=== PATIENT | female | born 1955 | race Hispanic/Latino ===

== ENCOUNTER 2021-05-14 09:42 | Emergency (ER) | payer MEDICARE, MEDICAID ==
[2021-05-14 10:24] LABS: #Basophils 0.1 10x3/uL (0.0-0.2); #Eosinphils 0.2 10x3/uL (0.0-0.5); #Monocytes 0.5 10x3/uL (0.0-1.1); #Neutrophils 4.5 10x3/uL (1.5-8.4); %Basophils 0.8 % (0.0-2.0); %Eosinophils 2.7 % (0.0-6.0); %Lymphocytes 27.4 % (18.0-47.0); %Monocytes 6.5 % (0.0-10.0); %Neutrophils 61.6 % (40.0-75.0); Hemoglobin 11.8 g/dL (12.0-15.5); Mean Corpuscular HGB CONC 32.4 g/dL (32.0-36.0); Mean Corpuscular Hemoglobin 25.5 pg (27.0-33.0); Mean Corpuscular Volume 78.8 fl (81.6-98.3); Mean Platelet Volume 11.1 fl (7.4-10.4); Platelet Count 263 10x3/uL (150-450); RBC Distribution Width 14.6 % (11.5-14.5); Red Blood Cell (RBC) Count 4.62 10x6/uL (3.90-5.03); White Blood Cell (WBC) Count 7.4 10x3/uL (3.5-10.5)
[2021-05-14] MEDS ORDERED: Bupivacaine 0.25% HCL 30 ML VIAL ONE (10:31)
[2021-05-14] MEDS ORDERED: Metoclopramide HCl 10 MG/2 ML VIAL ONE (10:32)
[2021-05-14] MEDS ORDERED: diphenhydrAMINE 50 MG/ML VIAL ONE (10:32)
[2021-05-14] MEDS ORDERED: Ketorolac Tromethamine 30 MG/ML VIAL ONE (10:32)
[2021-05-14 10:38] LABS: ALT (SGPT) 8 U/L (8-55); AST (SGOT) 13 U/L (5-34); Albumin 2.8 g/dL (3.4-4.8); Alkaline Phosphatase 165 U/L (40-110); Anion Gap 12 mmol/L (10-20); BUN (Urea Nitrogen) 18 mg/dL (9.8-20.1); Bilirubin, Total 0.3 mg/dL (0.2-1.2); Calc. Creatinine Clearance 0 mL/min (70-130); Calcium 9.2 mg/dL (7.8-10.44); Carbon Dioxide 27 mmol/L (23-31); Chloride 100 mmol/L (98-107); Globulin 3.3 g/dL (2.4-3.5); Glucose 287 mg/dL (80-115); Protein, Total 6.1 g/dL (5.8-8.1); Sodium 136 mmol/L (136-145)
== END 2021-05-14 13:00 | disposition home or self-care (01) ==
LOC: CSHERS 09:42
DX: E11.65 Type 2 diabetes mellitus with hyperglycemia (principal); R51.9 Headache, unspecified; I10 Essential (primary) hypertension; E78.00 Pure hypercholesterolemia, unspecified
CPT/HCPCS: 36415; 71045; 80053; 84484; 85025; 93005; 96372; 96374; 96375; J1200; J1885; J2765; S0020

== ENCOUNTER 2022-12-07 06:45 | Inpatient (IN) | payer OTHER, MEDICAID ==
[2022-12-07] MEDS ORDERED: Aspirin Chewable 81 MG TAB ONE (08:07)
[2022-12-07 08:20] LABS: #Monocytes 0.9 10x3/uL (0.0-1.1); #Neutrophils 15.9 10x3/uL (1.5-8.4); %Basophils 0.2 % (0.0-2.0); %Eosinophils 0.1 % (0.0-6.0); %Lymphocytes 4.9 % (18.0-47.0); %Monocytes 4.8 % (0.0-10.0); %Neutrophils 88.8 % (40.0-75.0); Hematocrit 20.9 % (34.9-44.5); Hemoglobin 6.5 g/dL (12.0-15.5); Mean Corpuscular HGB CONC 31.1 g/dL (32.0-36.0); Mean Corpuscular Hemoglobin 27.1 pg (27.0-33.0); Mean Corpuscular Volume 87.1 fl (81.6-98.3); Mean Platelet Volume 11.5 fl (7.4-10.4); Platelet Count 196 10x3/uL (150-450); RBC Distribution Width 15.5 % (11.5-14.5); White Blood Cell (WBC) Count 17.9 10x3/uL (3.5-10.5)
[2022-12-07 08:30] LABS: Troponin I 0.012 ng/mL (< 0.028)
[2022-12-07 08:37] LABS: ALT (SGPT) 7 U/L (8-55); AST (SGOT) 13 U/L (5-34); Albumin 3.1 g/dL (3.4-4.8); Alkaline Phosphatase 127 U/L (40-110); Anion Gap 19 mmol/L (10-20); BUN (Urea Nitrogen) 44 mg/dL (9.8-20.1); Bilirubin, Total 0.9 mg/dL (0.2-1.2); Calc. Creatinine Clearance 0 mL/min (70-130); Calcium 8.7 mg/dL (7.8-10.44); Carbon Dioxide 19 mmol/L (23-31); Chloride 104 mmol/L (98-107); Estimated GFR 13; Globulin 3.5 g/dL (2.4-3.5); Glucose 199 mg/dL (80-115); Magnesium 2.2 mg/dL (1.6-2.6); Potassium 5.7 mmol/L (3.5-5.1); Protein, Total 6.6 g/dL (5.8-8.1); Sodium 136 mmol/L (136-145)
[2022-12-07] MEDS ORDERED: Azithromycin 500 MG VIAL ONE (08:38)
[2022-12-07] MEDS ORDERED: Ondansetron ODT 4 MG TAB PO PRN (09:14)
[2022-12-07] MEDS ORDERED: Ampicillin/Sulbactam 3 GM in Sodium Chloride 0.9% 100 ML IVPB SCH (09:15)
[2022-12-07] MEDS ORDERED: Dextrose 50% Abboject 50 ML SYRINGE SLOW IVP PRN (09:20)
[2022-12-07] MEDS ORDERED: Dextrose 5% in Water 1,000 ML IV PRN (09:20)
[2022-12-07] MEDS ORDERED: Glucagon 1 MG/ML KIT IM PRN (09:20)
[2022-12-07 09:46] LABS: SARS-CoV-2 NAA Rapid Test Not Detected (NotDetected)
[2022-12-07] MEDS ORDERED: Vancomycin 1.5 GRAM/300 ML BAG 1.5 GM in Premix Bag 1 BAG IVPB SCH (14:00)
[2022-12-07] MEDS ORDERED: Acetaminophen 325 MG TAB ONE (15:09)
[2022-12-07] MEDS: Acetaminophen 325 MG TAB PO PRN (15:21)
[2022-12-07] MEDS ORDERED: Vancomycin Dose by Levels Sliding Scale (Wt > 99) FS SCH (22:30)
[2022-12-08] MEDS: Heparin 5,000 UNITS/ML VIAL SC SCH ×3 (00:28→09:08)
[2022-12-08] MEDS: Atorvastatin Calcium 40 MG TAB PO SCH ×2 (00:30→21:03)
[2022-12-08] MEDS: Gabapentin 400 MG CAP PO SCH ×4 (00:30→21:03)
[2022-12-08] MEDS: Ampicillin/Sulbactam 1.5 GM in Sodium Chloride 0.9% 100 ML IVPB SCH ×3 (00:41→23:28)
[2022-12-08 04:53] LABS: ALT (SGPT) 8 U/L (8-55); AST (SGOT) 17 U/L (5-34); Alkaline Phosphatase 127 U/L (40-110); Anion Gap 18 mmol/L (10-20); BUN (Urea Nitrogen) 57 mg/dL (9.8-20.1); Bilirubin, Total 0.9 mg/dL (0.2-1.2); Calc. Creatinine Clearance 21 mL/min (70-130); Calcium 8.6 mg/dL (7.8-10.44); Carbon Dioxide 20 mmol/L (23-31); Chloride 101 mmol/L (98-107); Estimated GFR 11; Globulin 3.5 g/dL (2.4-3.5); Glucose 227 mg/dL (80-115); Potassium 5.3 mmol/L (3.5-5.1); Protein, Total 6.5 g/dL (5.8-8.1); Sodium 134 mmol/L (136-145)
[2022-12-08 05:08] LABS: #Eosinphils 0.1 10x3/uL (0.0-0.5); #Monocytes 0.8 10x3/uL (0.0-1.1); #Neutrophils 14.1 10x3/uL (1.5-8.4); %Basophils 0.2 % (0.0-2.0); %Eosinophils 0.4 % (0.0-6.0); %Lymphocytes 4.6 % (18.0-47.0); %Monocytes 4.7 % (0.0-10.0); %Neutrophils 89.2 % (40.0-75.0); Hematocrit 21.1 % (34.9-44.5); Hemoglobin 6.6 g/dL (12.0-15.5); Mean Corpuscular HGB CONC 31.3 g/dL (32.0-36.0); Mean Corpuscular Hemoglobin 26.7 pg (27.0-33.0); Mean Corpuscular Volume 85.4 fl (81.6-98.3); Mean Platelet Volume 11.5 fl (7.4-10.4); Platelet Count 197 10x3/uL (150-450); RBC Distribution Width 17.3 % (11.5-14.5); Red Blood Cell (RBC) Count 2.47 10x6/uL (3.90-5.03); White Blood Cell (WBC) Count 15.9 10x3/uL (3.5-10.5)
[2022-12-08 07:04] LABS: CK (CPK) 29 U/L (29-168); Iron 14 ug/dL (50-170); Iron Binding Capacity, Total 165 mcg/dL (265-497)
[2022-12-08] MEDS: Sodium Bicarbonate Tab 325 MG TAB PO SCH ×3 (08:56→21:03)
[2022-12-08] MEDS: Ezetimibe 10 MG TAB PO SCH (08:57)
[2022-12-08] MEDS: Azithromycin 500 MG in Sodium Chloride 0.9% 250 ML 250 ML IVPB SCH (08:57)
[2022-12-08 09:42] LABS: Bilirubin Neg (Negative); Blood, Urine 10 (Negative); Clarity Slightly Cloudy (Clear); Glucose, Urine (Dipstick) 250 mg/dL (Negative); Ketone, Urine Negative (Negative); Leukocyte 100 (Negative); Nitrite Negative (Negative); Protein, Urine (Dipstick) 100 mg/dl (Neg-Trace); Urobilinogen Normal mg/dL (Less than 2)
[2022-12-08 10:06] LABS: Creatinine, Urine 112.02 mg/dL (47-110)
[2022-12-08 10:11] LABS: RBC/HPF 0-3 HPF (0-3)
[2022-12-08 10:12] LABS: Bacteria/HPF 1+ HPF (None Seen)
[2022-12-08 10:16] LABS: Protein, Urine Random Quant 196 mg/dL (1-14)
[2022-12-08] MEDS: Aripiprazole 10 MG TAB PO SCH (10:20)
[2022-12-08] MEDS: Acetaminophen 325 MG TAB PO PRN (10:25)
[2022-12-08] MEDS ORDERED: Lidocaine 1% PF 5 ML VIAL ONE (12:09)
[2022-12-08] MEDS ORDERED: Sodium Bicarbonate 2.5 MEQ/5 ML VIAL ONE (12:09)
[2022-12-08] MEDS ORDERED: LOKELMA 10 GM PACKET PO SCH (14:00)
[2022-12-08 15:09] LABS: Sodium, Urine Less than 20 mmol/L (Not Available); Urea Nitrogen, Random Urine 310 mg/dl
[2022-12-08 15:48] LABS: Vancomycin, Random 16.7 ug/mL (See Comment)
[2022-12-08] MEDS ORDERED: Vancomycin HCl 750 MG in Sodium Chloride 0.9% 250 ML 250 ML IVPB SCH (20:00)
[2022-12-09 04:39] LABS: Albumin 3.2 g/dL (3.4-4.8); Anion Gap 18 mmol/L (10-20); BUN (Urea Nitrogen) 65 mg/dL (9.8-20.1); BUN/Creatinine Ratio 14.13; Calc. Creatinine Clearance 20 mL/min (70-130); Calcium 8.4 mg/dL (7.8-10.44); Carbon Dioxide 19 mmol/L (23-31); Chloride 99 mmol/L (98-107); Estimated GFR 10; Glucose 266 mg/dL (80-115); Phosphorus 6.4 mg/dL (2.3-4.7); Potassium 4.9 mmol/L (3.5-5.1); Sodium 131 mmol/L (136-145)
[2022-12-09 04:48] LABS: #Eosinphils 0.2 10x3/uL (0.0-0.5); #Monocytes 0.6 10x3/uL (0.0-1.1); #Neutrophils 11.9 10x3/uL (1.5-8.4); %Basophils 0.3 % (0.0-2.0); %Eosinophils 1.1 % (0.0-6.0); %Lymphocytes 6.6 % (18.0-47.0); %Monocytes 4.3 % (0.0-10.0); %Neutrophils 85.9 % (40.0-75.0); Hematocrit 23.7 % (34.9-44.5); Hemoglobin 7.5 g/dL (12.0-15.5); Mean Corpuscular HGB CONC 31.6 g/dL (32.0-36.0); Mean Corpuscular Hemoglobin 26.3 pg (27.0-33.0); Mean Corpuscular Volume 83.2 fl (81.6-98.3); Mean Platelet Volume 11.6 fl (7.4-10.4); Platelet Count 236 10x3/uL (150-450); RBC Distribution Width 16.4 % (11.5-14.5); Red Blood Cell (RBC) Count 2.85 10x6/uL (3.90-5.03); White Blood Cell (WBC) Count 13.9 10x3/uL (3.5-10.5)
[2022-12-09] MEDS: Insulin Regular 300 UNITS/3 ML VIAL SC PRN ×3 (06:40→17:22)
[2022-12-09] MEDS ORDERED: Sodium Bicarbonate Tab 325 MG TAB PO SCH (07:51)
[2022-12-09] MEDS ORDERED: Sodium Chloride 0.9% 1,000 ML IV SCH (09:00)
[2022-12-09] MEDS: Sodium Bicarbonate Tab 325 MG TAB PO SCH ×3 (10:12→21:46)
[2022-12-09] MEDS: Ezetimibe 10 MG TAB PO SCH (10:12)
[2022-12-09] MEDS: Aripiprazole 10 MG TAB PO SCH (10:12)
[2022-12-09] MEDS: Gabapentin 400 MG CAP PO SCH ×3 (10:12→21:45)
[2022-12-09] MEDS: Lantus 1000 UNITS/10 ML VIAL SC SCH (10:13)
[2022-12-09] MEDS: Albumin 25% 25 GM/100 ML BOT IVPB SCH ×3 (10:13→22:37)
[2022-12-09] MEDS: Azithromycin 500 MG in Sodium Chloride 0.9% 250 ML 250 ML IVPB SCH (10:33)
[2022-12-09] MEDS: Ampicillin/Sulbactam 1.5 GM in Sodium Chloride 0.9% 100 ML IVPB SCH ×2 (11:00→22:42)
[2022-12-09] MEDS: Sevelamer Carbonate 800 MG TAB PO SCH ×2 (12:14→17:21)
[2022-12-09] MEDS ORDERED: Iron, Sodium Ferric Gluconate 250 MG, Admixture Fee 1 EACH in Sodium Chloride 0.9% 250 ... IVPB SCH (13:45)
[2022-12-09] MEDS ORDERED: Epoetin (ESRD) 10,000 UNITS/ML VIAL SC SCH (14:00)
[2022-12-09] MEDS ORDERED: Nitroglycerin 2% Ointment 1 INCH/1 GM Packet TOP SCH (21:00)
[2022-12-09] MEDS: Atorvastatin Calcium 40 MG TAB PO SCH (21:46)
[2022-12-09 21:51] LABS: Vancomycin, Trough 20.6 ug/mL
[2022-12-10] MEDS ORDERED: Ipratropium/Albuterol 3 ML NEB NEB SCH (01:30)
[2022-12-10] MEDS ORDERED: Nitroglycerin 2% Ointment 1 INCH/1 GM Packet TOP SCH ×2 (02:30→03:15)
[2022-12-10 02:32] LABS: #Eosinphils 0.2 10x3/uL (0.0-0.5); #Monocytes 0.7 10x3/uL (0.0-1.1); #Neutrophils 8.2 10x3/uL (1.5-8.4); %Basophils 0.2 % (0.0-2.0); %Eosinophils 2.1 % (0.0-6.0); %Lymphocytes 9.6 % (18.0-47.0); %Monocytes 6.6 % (0.0-10.0); %Neutrophils 79.4 % (40.0-75.0); Hematocrit 21.8 % (34.9-44.5); Hemoglobin 7.1 g/dL (12.0-15.5); Mean Corpuscular HGB CONC 32.6 g/dL (32.0-36.0); Mean Corpuscular Hemoglobin 26.8 pg (27.0-33.0); Mean Corpuscular Volume 82.3 fl (81.6-98.3); Mean Platelet Volume 11.2 fl (7.4-10.4); Platelet Count 221 10x3/uL (150-450); RBC Distribution Width 16.5 % (11.5-14.5); Red Blood Cell (RBC) Count 2.65 10x6/uL (3.90-5.03); White Blood Cell (WBC) Count 10.4 10x3/uL (3.5-10.5)
[2022-12-10 02:48] LABS: Anion Gap 21 mmol/L (10-20); BUN (Urea Nitrogen) 70 mg/dL (9.8-20.1); Calc. Creatinine Clearance 21 mL/min (70-130); Calcium 7.8 mg/dL (7.8-10.44); Carbon Dioxide 20 mmol/L (23-31); Chloride 100 mmol/L (98-107); Estimated GFR 10; Glucose 214 mg/dL (80-115); Potassium 4.5 mmol/L (3.5-5.1); Sodium 136 mmol/L (136-145); Troponin I 0.032 ng/mL (< 0.028)
[2022-12-10] MEDS ORDERED: Furosemide 100 MG/10 ML VIAL SLOW IVP SCH (03:00)
[2022-12-10] MEDS: Insulin Regular 300 UNITS/3 ML VIAL SC PRN ×3 (06:34→17:20)
[2022-12-10] MEDS ORDERED: Vancomycin 1 GM in Premix Bag 1 BAG IVPB SCH (06:45)
[2022-12-10 07:36] LABS: #Eosinphils 0.2 10x3/uL (0.0-0.5); #Monocytes 0.8 10x3/uL (0.0-1.1); #Neutrophils 8.4 10x3/uL (1.5-8.4); %Basophils 0.2 % (0.0-2.0); %Monocytes 7.6 % (0.0-10.0); %Neutrophils 78.7 % (40.0-75.0); Anion Gap 23 mmol/L (10-20); BUN (Urea Nitrogen) 70 mg/dL (9.8-20.1); Calc. Creatinine Clearance 21 mL/min (70-130); Calcium 8.3 mg/dL (7.8-10.44); Carbon Dioxide 17 mmol/L (23-31); Chloride 101 mmol/L (98-107); Estimated GFR 11; Glucose 216 mg/dL (80-115); Hematocrit 21.7 % (34.9-44.5); Hemoglobin 7.1 g/dL (12.0-15.5); Mean Corpuscular HGB CONC 32.7 g/dL (32.0-36.0); Mean Corpuscular Hemoglobin 26.9 pg (27.0-33.0); Mean Corpuscular Volume 82.2 fl (81.6-98.3); Mean Platelet Volume 11.3 fl (7.4-10.4); Platelet Count 222 10x3/uL (150-450); Potassium 4.5 mmol/L (3.5-5.1); RBC Distribution Width 16.6 % (11.5-14.5); Red Blood Cell (RBC) Count 2.64 10x6/uL (3.90-5.03); Sodium 136 mmol/L (136-145); White Blood Cell (WBC) Count 10.6 10x3/uL (3.5-10.5)
[2022-12-10 07:42] LABS: Troponin I 0.028 ng/mL (< 0.028)
[2022-12-10] MEDS ORDERED: Cefepime 2 GM in Sodium Chloride 0.9% 100 ML IVPB SCH (09:00)
[2022-12-10] MEDS: Sodium Bicarbonate Tab 325 MG TAB PO SCH ×3 (09:44→22:37)
[2022-12-10] MEDS: Sevelamer Carbonate 800 MG TAB PO SCH ×3 (09:44→17:20)
[2022-12-10] MEDS: Ezetimibe 10 MG TAB PO SCH (09:44)
[2022-12-10] MEDS: Aripiprazole 10 MG TAB PO SCH (09:44)
[2022-12-10] MEDS: Lantus 1000 UNITS/10 ML VIAL SC SCH (09:45)
[2022-12-10] MEDS: Gabapentin 400 MG CAP PO SCH ×3 (09:45→22:37)
[2022-12-10] MEDS ORDERED: LevoFLOXacin 750 mg/D5W 750 MG in Premix Bag 1 BAG IVPB SCH (10:00)
[2022-12-10] MEDS: Acetaminophen 325 MG TAB PO PRN (10:09)
[2022-12-10 11:43] LABS: HBSAg Index 0.16 S/CO (0-0.99); Hep B Surf Ag Non-Reactive S/CO (NonReactive)
[2022-12-10] MEDS ORDERED: LevoFLOXacin 750 MG TAB PO SCH (12:00)
[2022-12-10] MEDS ORDERED: Doxycycline 100 MG CAP PO SCH (12:00)
[2022-12-10] MEDS: Ipratropium/Albuterol 3 ML NEB NEB PRN ×2 (13:15→20:19)
[2022-12-10 16:10] LABS: Hep B Core Total Ab Non-Reactive (NonReactive); Hep B Core Total Index 0.12 S/CO (0-0.79); Hep C IgG Ab Non-Reactive S/CO (NonReactive); Hep C Index 0.08 S/CO (0-0.79)
[2022-12-10 16:15] LABS: HBSAB Concentration 53.14 mIU/mL; Hep B Surf AB Reactive (NonReactive)
[2022-12-10] MEDS ORDERED: traZODone HCl 50 MG TAB PO PRN (22:17)
[2022-12-10] MEDS: Atorvastatin Calcium 40 MG TAB PO SCH (22:37)
[2022-12-10] MEDS: Doxycycline 100 MG CAP PO SCH (22:37)
[2022-12-11] MEDS: Ipratropium/Albuterol 3 ML NEB NEB PRN ×3 (01:16→19:40)
[2022-12-11] MEDS ORDERED: Ketorolac Tromethamine 30 MG/ML VIAL IVP SCH (02:00)
[2022-12-11 03:50] LABS: #Basophils 0.1 10x3/uL (0.0-0.2); #Eosinphils 0.1 10x3/uL (0.0-0.5); #Monocytes 0.9 10x3/uL (0.0-1.1); #Neutrophils 9.7 10x3/uL (1.5-8.4); %Basophils 0.4 % (0.0-2.0); %Eosinophils 0.8 % (0.0-6.0); %Lymphocytes 7.7 % (18.0-47.0); %Neutrophils 79.4 % (40.0-75.0); Hematocrit 22.7 % (34.9-44.5); Hemoglobin 7.3 g/dL (12.0-15.5); Mean Corpuscular HGB CONC 32.2 g/dL (32.0-36.0); Mean Corpuscular Hemoglobin 26.6 pg (27.0-33.0); Mean Corpuscular Volume 82.8 fl (81.6-98.3); Mean Platelet Volume 11.6 fl (7.4-10.4); Platelet Count 224 10x3/uL (150-450); RBC Distribution Width 16.5 % (11.5-14.5); Red Blood Cell (RBC) Count 2.74 10x6/uL (3.90-5.03); White Blood Cell (WBC) Count 12.3 10x3/uL (3.5-10.5)
[2022-12-11 04:11] LABS: Anion Gap 19 mmol/L (10-20); BUN (Urea Nitrogen) 68 mg/dL (9.8-20.1); Calc. Creatinine Clearance 24 mL/min (70-130); Calcium 8.6 mg/dL (7.8-10.44); Carbon Dioxide 21 mmol/L (23-31); Chloride 100 mmol/L (98-107); Estimated GFR 12; Glucose 175 mg/dL (80-115); Potassium 4.3 mmol/L (3.5-5.1); Sodium 136 mmol/L (136-145)
[2022-12-11] MEDS: LevoFLOXacin 500 MG TAB PO SCH (06:47)
[2022-12-11 08:08] LABS: Actual Bicarbonate (HCO3v) 21.5 mEq/L (22-28); Base Excess -3.7 mEq/L (-2 - +2); Calcium, Ionized (venous) 0.99 mmol/L (1.16-1.32); Chloride (VBG) 100 mmol/L (98-106); Hematocrit-VBG 24 % (36.0-47.0); Hemoglobin (Hb) 8.3 g/dL (11.7-16.1); Potassium (VBG) 4.33 mmol/L (3.70-5.30); Puncture Site Other Site; RapidComm Collect By CBN; Sodium 134.6 mmol/L (133-146); pH (venous) 7.354 (7.32-7.43)
[2022-12-11] MEDS ORDERED: Cefepime 1 GM in Sodium Chloride 0.9% 100 ML IVPB SCH (09:00)
[2022-12-11] MEDS ORDERED: Furosemide 40 MG/4 ML VIAL SLOW IVP SCH (09:15)
[2022-12-11] MEDS ORDERED: Metolazone 5 MG TAB PO SCH (09:15)
[2022-12-11] MEDS: Sodium Bicarbonate Tab 325 MG TAB PO SCH ×3 (10:34→21:15)
[2022-12-11] MEDS: Aripiprazole 10 MG TAB PO SCH (10:34)
[2022-12-11] MEDS: Sevelamer Carbonate 800 MG TAB PO SCH ×3 (10:35→17:39)
[2022-12-11] MEDS: Doxycycline 100 MG CAP PO SCH ×2 (10:35→21:16)
[2022-12-11] MEDS: Gabapentin 400 MG CAP PO SCH ×3 (10:35→21:15)
[2022-12-11] MEDS: Ezetimibe 10 MG TAB PO SCH (10:36)
[2022-12-11] MEDS: Lantus 1000 UNITS/10 ML VIAL SC SCH (10:36)
[2022-12-11] MEDS: Furosemide 40 MG/4 ML VIAL SLOW IVP SCH ×2 (15:22→21:16)
[2022-12-11] MEDS: Acetaminophen 325 MG TAB PO PRN (15:22)
[2022-12-11] MEDS ORDERED: hydrALAZINE 20 MG/ML VIAL SLOW IVP PRN (17:43)
[2022-12-11] MEDS: HYDROcodone/Acetaminophen 10/325 mg Tablet PO PRN (18:52)
[2022-12-11] MEDS: Epoetin (ESRD) 10,000 UNITS/ML VIAL SC SCH (18:54)
[2022-12-11] MEDS: Atorvastatin Calcium 40 MG TAB PO SCH (21:14)
[2022-12-11] MEDS: Insulin Regular 300 UNITS/3 ML VIAL SC PRN (21:16)
[2022-12-12] MEDS: Ipratropium/Albuterol 3 ML NEB NEB PRN (01:27)
[2022-12-12 04:18] LABS: Anion Gap 17 mmol/L (10-20); BUN (Urea Nitrogen) 69 mg/dL (9.8-20.1); Calc. Creatinine Clearance 29 mL/min (70-130); Calcium 9.4 mg/dL (7.8-10.44); Carbon Dioxide 25 mmol/L (23-31); Chloride 100 mmol/L (98-107); Estimated GFR 15; Glucose 221 mg/dL (80-115); Potassium 4.3 mmol/L (3.5-5.1); Sodium 138 mmol/L (136-145)
[2022-12-12 04:34] LABS: Mean Corpuscular Hemoglobin 26.7 pg (27.0-33.0); Mean Corpuscular Volume 83.3 fl (81.6-98.3); Mean Platelet Volume 11.1 fl (7.4-10.4); Platelet Count 256 10x3/uL (150-450); RBC Distribution Width 16.8 % (11.5-14.5); White Blood Cell (WBC) Count 13.3 10x3/uL (3.5-10.5)
[2022-12-12] MEDS: Furosemide 40 MG/4 ML VIAL SLOW IVP SCH ×3 (05:37→22:44)
[2022-12-12 05:42] LABS: MDiff Complete? YES
[2022-12-12] MEDS: Insulin Regular 300 UNITS/3 ML VIAL SC PRN ×3 (05:46→21:16)
[2022-12-12 05:49] LABS: Platelet Adequacy Comment Appears Adequate; RBC Morph Comment Within Normal Limits
[2022-12-12 05:53] LABS: Band 10 % (5-11); Eosinophils 3 % (0-10); Lymphocytes 9 % (21-51); Metamyelocyte 2 % (0-0); Monocytes 6 % (0-10); Neutrophil 70 % (42-75)
[2022-12-12] MEDS ORDERED: Metolazone 5 MG TAB PO SCH (06:15)
[2022-12-12] MEDS ORDERED: Albumin 25% 25 GM/100 ML BOT IVPB SCH (09:00)
[2022-12-12] MEDS: Lantus 1000 UNITS/10 ML VIAL SC SCH (09:06)
[2022-12-12] MEDS: Doxycycline 100 MG CAP PO SCH ×2 (09:07→21:14)
[2022-12-12] MEDS: Gabapentin 400 MG CAP PO SCH ×3 (09:07→21:16)
[2022-12-12] MEDS: Sevelamer Carbonate 800 MG TAB PO SCH ×3 (09:07→17:26)
[2022-12-12] MEDS: Ezetimibe 10 MG TAB PO SCH (09:08)
[2022-12-12] MEDS: Aripiprazole 10 MG TAB PO SCH (09:08)
[2022-12-12] MEDS: Sodium Bicarbonate Tab 325 MG TAB PO SCH ×3 (09:08→21:14)
[2022-12-12] MEDS: hydrALAZINE 25 MG TAB PO SCH ×2 (09:09→21:14)
[2022-12-12] MEDS: Isosorbide Dinitrate 20 MG TAB PO SCH ×2 (09:19→21:14)
[2022-12-12] MEDS ORDERED: LevoFLOXacin 500 mg/D5W 500 MG in Premix Bag 1 BAG IVPB SCH (10:00)
[2022-12-12] MEDS ORDERED: Carvedilol 6.25 MG TAB PO SCH (11:00)
[2022-12-12] MEDS ORDERED: Iron, Sodium Ferric Gluconate 250 MG in Sodium Chloride 0.9% 250 ML 250 ML IVPB SCH (14:00)
[2022-12-12] MEDS: Albumin 25% 25 GM/100 ML BOT IVPB SCH ×2 (14:04→21:14)
[2022-12-12] MEDS: Carvedilol 6.25 MG TAB PO SCH (17:25)
[2022-12-12] MEDS: HYDROcodone/Acetaminophen 10/325 mg Tablet PO PRN (21:15)
[2022-12-12] MEDS: Atorvastatin Calcium 40 MG TAB PO SCH (21:38)
[2022-12-13] MEDS: HYDROcodone/Acetaminophen 10/325 mg Tablet PO PRN ×3 (01:35→22:08)
[2022-12-13] MEDS: Albumin 25% 25 GM/100 ML BOT IVPB SCH (03:11)
[2022-12-13 03:55] LABS: Hematocrit 22.7 % (34.9-44.5); Hemoglobin 7.2 g/dL (12.0-15.5); Mean Corpuscular HGB CONC 31.7 g/dL (32.0-36.0); Mean Corpuscular Hemoglobin 26.8 pg (27.0-33.0); Mean Corpuscular Volume 84.4 fl (81.6-98.3); Mean Platelet Volume 11.3 fl (7.4-10.4); Platelet Count 250 10x3/uL (150-450); RBC Distribution Width 17.2 % (11.5-14.5); Red Blood Cell (RBC) Count 2.69 10x6/uL (3.90-5.03); White Blood Cell (WBC) Count 11.4 10x3/uL (3.5-10.5)
[2022-12-13 04:18] LABS: Anion Gap 17 mmol/L (10-20); BUN (Urea Nitrogen) 66 mg/dL (9.8-20.1); Calc. Creatinine Clearance 35 mL/min (70-130); Calcium 9.4 mg/dL (7.8-10.44); Carbon Dioxide 29 mmol/L (23-31); Chloride 98 mmol/L (98-107); Estimated GFR 20; Glucose 192 mg/dL (80-115); Potassium 3.7 mmol/L (3.5-5.1); Sodium 140 mmol/L (136-145)
[2022-12-13 04:32] LABS: MDiff Complete? YES
[2022-12-13 04:36] LABS: Platelet Adequacy Comment Appears Adequate; RBC Morph Comment Within Normal Limits
[2022-12-13 04:38] LABS: Band 4 % (5-11); Eosinophils 5 % (0-10); Lymphocytes 15 % (21-51); Monocytes 9 % (0-10); Neutrophil 67 % (42-75)
[2022-12-13] MEDS ORDERED: LevoFLOXacin 500 MG TAB PO SCH (06:00)
[2022-12-13] MEDS: Furosemide 40 MG/4 ML VIAL SLOW IVP SCH (06:32)
[2022-12-13] MEDS: Insulin Regular 300 UNITS/3 ML VIAL SC PRN ×3 (06:34→22:00)
[2022-12-13] MEDS: LevoFLOXacin 500 MG TAB PO SCH (06:39)
[2022-12-13] MEDS ORDERED: Carvedilol 12.5 MG TAB PO SCH (10:00)
[2022-12-13] MEDS: Sodium Bicarbonate Tab 325 MG TAB PO SCH ×3 (10:11→21:54)
[2022-12-13] MEDS: Sevelamer Carbonate 800 MG TAB PO SCH ×3 (10:11→16:21)
[2022-12-13] MEDS: hydrALAZINE 25 MG TAB PO SCH ×2 (10:12→21:55)
[2022-12-13] MEDS: Doxycycline 100 MG CAP PO SCH ×2 (10:12→21:54)
[2022-12-13] MEDS: Isosorbide Dinitrate 20 MG TAB PO SCH ×2 (10:12→21:54)
[2022-12-13] MEDS: Lantus 1000 UNITS/10 ML VIAL SC SCH (10:13)
[2022-12-13] MEDS: Gabapentin 400 MG CAP PO SCH ×3 (10:14→21:55)
[2022-12-13] MEDS: Ezetimibe 10 MG TAB PO SCH (10:14)
[2022-12-13] MEDS: Epoetin (ESRD) 10,000 UNITS/ML VIAL SC SCH (10:34)
[2022-12-13] MEDS: Carvedilol 6.25 MG TAB PO SCH (10:35)
[2022-12-13] MEDS: Carvedilol 25 MG TAB PO SCH (21:54)
[2022-12-13] MEDS: Atorvastatin Calcium 40 MG TAB PO SCH (21:55)
[2022-12-14 05:09] LABS: #Eosinphils 0.6 10x3/uL (0.0-0.5); #Monocytes 0.7 10x3/uL (0.0-1.1); #Neutrophils 6.4 10x3/uL (1.5-8.4); %Basophils 0.4 % (0.0-2.0); %Eosinophils 6.1 % (0.0-6.0); %Lymphocytes 17.3 % (18.0-47.0); %Monocytes 7.2 % (0.0-10.0); %Neutrophils 64.2 % (40.0-75.0); Hematocrit 26.1 % (34.9-44.5); Hemoglobin 8.1 g/dL (12.0-15.5); Mean Corpuscular Hemoglobin 26.9 pg (27.0-33.0); Mean Corpuscular Volume 86.7 fl (81.6-98.3); Mean Platelet Volume 10.9 fl (7.4-10.4); Platelet Count 272 10x3/uL (150-450); RBC Distribution Width 17.2 % (11.5-14.5); Red Blood Cell (RBC) Count 3.01 10x6/uL (3.90-5.03)
[2022-12-14 05:25] LABS: Anion Gap 18 mmol/L (10-20); BUN (Urea Nitrogen) 69 mg/dL (9.8-20.1); Calc. Creatinine Clearance 35 mL/min (70-130); Calcium 9.4 mg/dL (7.8-10.44); Carbon Dioxide 32 mmol/L (23-31); Chloride 95 mmol/L (98-107); Estimated GFR 20; Glucose 279 mg/dL (80-115); Sodium 141 mmol/L (136-145)
[2022-12-14] MEDS: Insulin Regular 300 UNITS/3 ML VIAL SC PRN ×2 (06:06→15:42)
[2022-12-14] MEDS: HYDROcodone/Acetaminophen 10/325 mg Tablet PO PRN (06:19)
[2022-12-14] MEDS: Carvedilol 25 MG TAB PO SCH ×2 (08:36→22:05)
[2022-12-14] MEDS: Doxycycline 100 MG CAP PO SCH ×2 (08:36→22:07)
[2022-12-14] MEDS: Sevelamer Carbonate 800 MG TAB PO SCH ×3 (08:36→17:56)
[2022-12-14] MEDS: Ezetimibe 10 MG TAB PO SCH (08:36)
[2022-12-14] MEDS: Aripiprazole 10 MG TAB PO SCH (08:37)
[2022-12-14] MEDS: Sodium Bicarbonate Tab 325 MG TAB PO SCH ×3 (08:37→22:05)
[2022-12-14] MEDS: Gabapentin 400 MG CAP PO SCH ×3 (08:38→22:05)
[2022-12-14] MEDS: Lantus 1000 UNITS/10 ML VIAL SC SCH (08:38)
[2022-12-14] MEDS ORDERED: NIFEdipine XL 60 MG ER.TAB PO SCH (09:00)
[2022-12-14] MEDS ORDERED: Iron, Sodium Ferric Gluconate 250 MG in Sodium Chloride 0.9% 250 ML 250 ML IVPB SCH (11:30)
[2022-12-14] MEDS ORDERED: Empagliflozin 25 MG TAB PO SCH (14:30)
[2022-12-14] MEDS ORDERED: Lantus 1000 UNITS/10 ML VIAL SC SCH (14:30)
[2022-12-14] MEDS: Atorvastatin Calcium 40 MG TAB PO SCH (22:04)
[2022-12-14] MEDS: NIFEdipine XL 60 MG ER.TAB PO SCH (22:04)
[2022-12-15 05:27] LABS: #Eosinphils 0.5 10x3/uL (0.0-0.5); #Monocytes 0.7 10x3/uL (0.0-1.1); #Neutrophils 7.2 10x3/uL (1.5-8.4); %Basophils 0.4 % (0.0-2.0); %Eosinophils 4.6 % (0.0-6.0); %Lymphocytes 15.3 % (18.0-47.0); %Monocytes 6.8 % (0.0-10.0); %Neutrophils 69.2 % (40.0-75.0); Hemoglobin 8.7 g/dL (12.0-15.5); Mean Corpuscular HGB CONC 31.1 g/dL (32.0-36.0); Mean Corpuscular Hemoglobin 26.4 pg (27.0-33.0); Mean Corpuscular Volume 84.8 fl (81.6-98.3); Mean Platelet Volume 10.7 fl (7.4-10.4); Platelet Count 286 10x3/uL (150-450); RBC Distribution Width 17.2 % (11.5-14.5); White Blood Cell (WBC) Count 10.4 10x3/uL (3.5-10.5)
[2022-12-15 05:45] LABS: Anion Gap 15 mmol/L (10-20); BUN (Urea Nitrogen) 78 mg/dL (9.8-20.1); Calc. Creatinine Clearance 33 mL/min (70-130); Calcium 9.3 mg/dL (7.8-10.44); Carbon Dioxide 32 mmol/L (23-31); Chloride 93 mmol/L (98-107); Estimated GFR 18; Glucose 392 mg/dL (80-115); Potassium 4.1 mmol/L (3.5-5.1); Sodium 136 mmol/L (136-145)
[2022-12-15 05:52] VITALS: BMI 36.7
[2022-12-15] MEDS: Insulin Regular 300 UNITS/3 ML VIAL SC PRN ×4 (06:17→21:09)
[2022-12-15 06:42] LABS: Phosphorus 4.2 mg/dL (2.3-4.7)
[2022-12-15 06:45] LABS: Albumin 3.3 g/dL (3.4-4.8)
[2022-12-15] MEDS: Doxycycline 100 MG CAP PO SCH ×2 (08:33→21:02)
[2022-12-15] MEDS: Gabapentin 400 MG CAP PO SCH ×3 (08:33→21:02)
[2022-12-15] MEDS: Sevelamer Carbonate 800 MG TAB PO SCH ×3 (08:34→16:08)
[2022-12-15] MEDS: Ezetimibe 10 MG TAB PO SCH (08:34)
[2022-12-15] MEDS: NIFEdipine XL 60 MG ER.TAB PO SCH ×2 (08:36→21:02)
[2022-12-15] MEDS: Labetalol HCl 100 MG TAB PO SCH ×2 (08:41→21:03)
[2022-12-15] MEDS ORDERED: Lantus 1000 UNITS/10 ML VIAL SC SCH ×2 (09:00→16:00)
[2022-12-15] MEDS ORDERED: Empagliflozin 25 MG TAB PO SCH ×2 (09:00)
[2022-12-15] MEDS: Aripiprazole 10 MG TAB PO SCH (09:22)
[2022-12-15] MEDS: Epoetin (ESRD) 10,000 UNITS/ML VIAL SC SCH (09:22)
[2022-12-15] MEDS: HYDROcodone/Acetaminophen 10/325 mg Tablet PO PRN ×2 (09:42→21:08)
[2022-12-15] MEDS: Atorvastatin Calcium 40 MG TAB PO SCH (21:02)
[2022-12-16 05:51] LABS: #Eosinphils 0.5 10x3/uL (0.0-0.5); #Monocytes 0.7 10x3/uL (0.0-1.1); #Neutrophils 6.8 10x3/uL (1.5-8.4); %Basophils 0.4 % (0.0-2.0); %Eosinophils 5.1 % (0.0-6.0); %Lymphocytes 17.1 % (18.0-47.0); %Monocytes 6.8 % (0.0-10.0); Hematocrit 26.8 % (34.9-44.5); Hemoglobin 8.3 g/dL (12.0-15.5); Mean Corpuscular Hemoglobin 26.6 pg (27.0-33.0); Mean Corpuscular Volume 85.9 fl (81.6-98.3); Mean Platelet Volume 11.4 fl (7.4-10.4); Platelet Count 266 10x3/uL (150-450); RBC Distribution Width 17.2 % (11.5-14.5); Red Blood Cell (RBC) Count 3.12 10x6/uL (3.90-5.03); White Blood Cell (WBC) Count 10.1 10x3/uL (3.5-10.5)
[2022-12-16 05:56] LABS: Anion Gap 15 mmol/L (10-20); BUN (Urea Nitrogen) 85 mg/dL (9.8-20.1); Calc. Creatinine Clearance 29 mL/min (70-130); Carbon Dioxide 30 mmol/L (23-31); Chloride 95 mmol/L (98-107); Estimated GFR 16; Glucose 359 mg/dL (80-115); Potassium 4.1 mmol/L (3.5-5.1); Sodium 136 mmol/L (136-145)
[2022-12-16] MEDS: Insulin Regular 300 UNITS/3 ML VIAL SC PRN ×2 (06:21→12:15)
[2022-12-16] MEDS: Labetalol HCl 100 MG TAB PO SCH (08:22)
[2022-12-16] MEDS: Sevelamer Carbonate 800 MG TAB PO SCH ×2 (08:22→12:15)
[2022-12-16] MEDS: Gabapentin 400 MG CAP PO SCH (08:22)
[2022-12-16] MEDS: NIFEdipine XL 60 MG ER.TAB PO SCH (08:22)
[2022-12-16] MEDS: Ezetimibe 10 MG TAB PO SCH (08:22)
[2022-12-16] MEDS: Doxycycline 100 MG CAP PO SCH (08:23)
[2022-12-16] MEDS: Aripiprazole 10 MG TAB PO SCH (08:23)
[2022-12-16] MEDS: HYDROcodone/Acetaminophen 10/325 mg Tablet PO PRN (08:23)
[2022-12-16 08:50] VITALS: BP 145/65; TEMP 97.8
[2022-12-16] MEDS ORDERED: Lantus 1000 UNITS/10 ML VIAL SC SCH (09:00)
[2022-12-16] MEDS ORDERED: Albumin 25% 25 GM/100 ML BOT IVPB SCH (12:00)
== END 2022-12-16 13:21 | disposition home or self-care (01) | DRG 193 ==
LOC: CSHERS 06:45 → SUATTDRO 06:45 → CSHERHOLD 08:54 → CSHTELE 19:19
PROVIDERS: ADMIT Internal Medicine; ATTEND Internal Medicine
PROC: 30233N1 Transfusion of Nonautologous Red Blood Cells into Peripheral Vein, Percutaneous Approach (ICD-10-PCS; 2022-12-07)
PROC: 02HV33Z Insertion of Infusion Device into Superior Vena Cava, Percutaneous Approach (ICD-10-PCS; principal; 2022-12-08)
PROC: B5181ZA Fluoroscopy of Superior Vena Cava using Low Osmolar Contrast, Guidance (ICD-10-PCS; 2022-12-08)
PROC: 30233J1 Transfusion of Nonautologous Serum Albumin into Peripheral Vein, Percutaneous Approach (ICD-10-PCS; 2022-12-12)
DX: J18.9 Pneumonia, unspecified organism (principal); J96.21 Acute and chronic respiratory failure with hypoxia; I13.0 Hypertensive heart and chronic kidney disease with heart failure and stage 1 through stage 4 chronic kidney disease, or unspecified chronic kidney disease; N17.9 Acute kidney failure, unspecified; I50.32 Chronic diastolic (congestive) heart failure; E87.21 Acute metabolic acidosis; N18.4 Chronic kidney disease, stage 4 (severe); J90 Pleural effusion, not elsewhere classified; E11.22 Type 2 diabetes mellitus with diabetic chronic kidney disease; E78.5 Hyperlipidemia, unspecified; J44.9 Chronic obstructive pulmonary disease, unspecified; E87.5 Hyperkalemia; D50.9 Iron deficiency anemia, unspecified; D63.1 Anemia in chronic kidney disease; Z20.822 Contact with and (suspected) exposure to COVID-19; E83.39 Other disorders of phosphorus metabolism; E11.65 Type 2 diabetes mellitus with hyperglycemia; Z86.73 Personal history of transient ischemic attack (TIA), and cerebral infarction without residual deficits; Z95.0 Presence of cardiac pacemaker; Z98.890 Other specified postprocedural states; Z88.8 Allergy status to other drugs, medicaments and biological substances; Z88.2 Allergy status to sulfonamides; Z91.048 Other nonmedicinal substance allergy status; Z79.899 Other long term (current) drug therapy; Z79.51 Long term (current) use of inhaled steroids; Z79.82 Long term (current) use of aspirin; Z79.4 Long term (current) use of insulin; Z82.49 Family history of ischemic heart disease and other diseases of the circulatory system; Z90.710 Acquired absence of both cervix and uterus; Z90.49 Acquired absence of other specified parts of digestive tract
CPT/HCPCS: 36415; 36416; 36430; 36569; 71045; 74176; 80048; 80053; 80069; 80202; 81001; 82040; 82550; 82570; 82728; 82805; 83540; 83550; 83735; 83880; 84100; 84156; 84300; 84484; 84540; 85025; 86704; 86850; 86900; 86901; 93005; 93010; 94640; 94760; 94762; 96374; 96375; 97139; C1751; J0295; J0360; J0456; J0692; J1644; J1815; J1940; J1956; J2916; J3370; J3490; J7050; J7620; P9016; P9047; Q4081